=== PATIENT | female | born 1975 | race Two or more races ===

== ENCOUNTER 2019-04-21 11:55 | Emergency (ER) | payer SELFPAY ==
[~2019-04-21] VITALS: Ht 165.1 cm; Wt 72.7 kg
[2019-04-21 11:58] VITALS: BP 131/62
[2019-04-21] MEDS ORDERED: HYDROCODONE/ACETAMINOPHEN 5-325 MG TABLET PO ONE (14:00)
[2019-04-21] MEDS ORDERED: PRAMOXINE/HYDROCORTISONE 10 GM FOAM TP ONE (14:00)
== END 2019-04-21 14:13 | disposition left against medical advice (07) ==
LOC: EMS 11:57 → EDBD 11:57 → EMS 14:13
DX: K64.9 Unspecified hemorrhoids (principal)